=== PATIENT | male | born 1960 | race Two or more races ===

== ENCOUNTER 2020-04-08 15:45 | Emergency (ER) | payer MEDICAID, SELFPAY ==
[2020-04-08 16:06] VITALS: BP 128/86; PULSE 67; RESP 19; TEMP 36.8; O2SAT 100; BMI 23.6
--- NOTE | 2020-04-08 16:28 | HMH.EDUTC ---
[facility] [place] Clinical Impression: Dental abscess, Pain, dental Disposition: Home, Self-Care Condition on Discharge: Good Instructions: DI for Tooth Abscess, DI for Dental Pain Additional Instructions: You have to follow up with a dentist. Take the antibiotics as directed. Follow up with your regular doctor. GO TO THE ER FOR ANY WORSENING SYMPTOMS OR CONCERNS Prescriptions: Amoxicillin/Potassium Clav [Augmentin 875-125 Tablet] 1 tab PO Q12H 10 Days #20 tab Transmission Status: Received by [id number] Referrals: Provider,Referral, [Primary Care Provider] - Time of Disposition: 16:34 Medical Decision Making - Medical Records Medical records reviewed: No: I reviewed the patient's medical records. - Bryon Inquiry Pt receiving controlled substance: No Vital Signs: 04/08/20 16:06 04/08/20 16:44 Temperature 98.2 F 98.2 F Temperature Source Oral Pulse Rate 67 Pulse Rate [Right Brachial] 67 Respiratory Rate 19 19 Blood Pressure 128/86 Blood Pressure [Right Arm] 128/86 Blood Pressure Mean [Right Arm] 100 Blood Pressure Source [Right Arm] Automatic Cuff Blood Pressure Position [Right Arm] Sitting 02 Sat by Pulse Oximetry 100 Oxygen Delivery Method Room Air Orders (Tests/Meds): ED MEDICATIONS Discontinued Medications Generic Name Dose Route Start Last Admin Trade Name Zanq PRN Reason Stop Dose Admin Ceftriaxone Sodium 1 gm 04/08/20 16:30 04/08/20 16:41 Rocephin 1gm Vial IM 04/08/20 16:31 1 gm ONCE ONE Administration Protocol Lidocaine HCl 0 ml 04/08/20 16:30 04/08/20 16:41 Lidocaine 1% 10ml Mdv IM 04/08/20 16:31 2.1 ml ONCE ONE Administration [facility] [place] - General Stated complaint: Infection in gums Time Seen by Provider: 04/08/20 16:28 Mode of Arrival: Ambulatory Source of Information: Patient Limitations: No Limitations Description of Symptoms (Recalled from Triage Doc. by RN): PATIENT C/O GUM PAIN (BROKEN TEETH, POSSIBLE ABSCESS) X 1 WEEK HEENT Symptoms (Recalled from RN notes): Yes Resp Symptoms (Recalled from RN notes): No Skin Symptoms (Recalled from RN notes): No MS Symptoms (Recalled from RN notes): No Functional Status (Recalled from RN notes): WNL - History of Present Illness Provider Complaint: He c/o dental pain and swelling for the past 1 week. - Related Data Previous Rx's Medication Instructions Recorded Amoxicillin/Potassium Clav 1 tab PO Q12H 10 Days #20 tab 04/08/20 [Augmentin 875-125 Tablet] Allergies Allergy/AdvReac Type Severity Reaction Status Date / Time No Known Allergies Allergy Verified 12/19/19 16:23 - Worker's Comp Is this a Worker's Comp case?: No [facility] History - Hepatitis A Screen Drug use history?: No High risk sexual behaviors?: No History of sexually transmitted infection?: No Currently employed?: No Childcare worker?: No Do you have indoor plumbing?: Yes Do you have electricity?: Yes Attestation statement:: This patient has been screened for Hepatitis A risk factors. I have reviewed the patient's past medical history: Yes Medical History: Denies:: Diabetes Mellitus Type 1, Diabetes Mellitus Type 2 - Social History Smoking Status: Current every day smoker Tobacco Type: cigarettes # Packs/Day (cigarettes): 1 Alcohol Intake: current Alcohol Intake Frequency:: a few times a week Occupational Status: other ROS Obtained: Yes All systems reviewed & no additional complaints - Constitutional Constitutional: Denies chills, Denies fever(s) - Eyes Eyes: Denies eye discharge - ENT Ears, Nose, Mouth, and Throat: Denies dizziness, Denies otalgia, Denies sore throat Physical Exam - General General appearance: alert, in no apparent distress - Head Head exam: atraumatic, normocephalic, normal inspection - Eye Eye exam: Present: normal appearance, PERRL, EOMI - ENT ENT exam: Present: mucous membranes moist, TM's normal bilaterally, normal external
[2020-04-08 16:44] VITALS: BP 128/86; PULSE 67; RESP 19; TEMP 36.8; O2SAT 100
== END 2020-04-08 16:53 | disposition home or self-care (01) ==
PROVIDERS: Emergency Provider Nurse Practitioner Family
DX: K04.7 Periapical abscess without sinus (principal); F17.210 Nicotine dependence, cigarettes, uncomplicated
CPT/HCPCS: 96372; 99201